=== PATIENT | male | born 1980 | race African-American/Black ===

== ENCOUNTER 2023-05-29 13:47 | Inpatient (IN) | payer OTHER ==
[2023-05-29 14:41] VITALS: BP 123/78; PULSE 103; RESP 18; TEMP 97.7; BMI 24.5
[2023-05-29] MEDS ORDERED: METHOCARBAMOL 500 MG TABLET PO PRN (15:20)
[2023-05-29] MEDS ORDERED: DICYCLOMINE HCL 10 MG CAPSULE PO PRN (15:20)
[2023-05-29] MEDS ORDERED: BENZONATATE 200 MG CAPSULE PO PRN (15:20)
[2023-05-29] MEDS ORDERED: IBUPROFEN 600 MG TABLET (FP) PO PRN (15:20)
[2023-05-29] MEDS ORDERED: MAG HYDROX/AL HYDROX/SIMETH 30 ML UNIT-DOSE CUP PO PRN (15:20)
[2023-05-29] MEDS ORDERED: BISMUTH SUBSALICYLATE 262 MG/15 ML BTL PO PRN (15:20)
[2023-05-29] MEDS ORDERED: guaiFENesin 600 MG TABLET.ER (FP) PO PRN (15:20)
[2023-05-29] MEDS ORDERED: ACETAMINOPHEN 325 MG TABLET (FP) PO PRN (15:20)
[2023-05-29] MEDS ORDERED: BENZOCAINE/MENTHOL (CHLORASEPTIC ) LOZENGE MM PRN (15:20)
[2023-05-29] MEDS ORDERED: NALOXONE HCL 0.4 MG/ML VIAL IM PRN (15:20)
[2023-05-29] MEDS ORDERED: MAGNESIUM HYDROX 2400MG/30ML ORAL SUSPENSION 30 ML CUP PO PRN (15:20)
[2023-05-29] MEDS ORDERED: hydrOXYzine PAMOATE 25 MG CAPSULE (FP) PO PRN (15:20)
[2023-05-29] MEDS ORDERED: NICOTINE POLACRILEX 2 MG GUM BUC PRN (15:20)
[2023-05-29] MEDS ORDERED: NALOXONE HCL (KLOXXADO) 8 MG SPRAY NS PRN (15:20)
[2023-05-29] MEDS ORDERED: POLYETHYLENE GLYCOL (HEALTHYLAX) 3350 17 GM PACKET PO PRN (15:20)
[2023-05-29] MEDS ORDERED: ONDANSETRON *ODT* 4 MG TABLET SL PRN (15:20)
[2023-05-29] MEDS ORDERED: IBUPROFEN 400 MG TABLET (FP) PO PRN (15:20)
[2023-05-29] MEDS ORDERED: LOPERAMIDE HCL 2 MG CAPSULE PO PRN (15:20)
[2023-05-29] MEDS ORDERED: MELATONIN 5 MG TABLETS PO SCH (22:00)
[2023-05-29] MEDS ORDERED: THIAMINE HCL 100 MG TABLET (FP) PO SCH (22:00)
[2023-05-30] MEDS ORDERED: PRENATAL VITAMINS W/ FOLIC ACID TABLET (FP) PO SCH (10:00)
== END 2023-05-30 03:07 | disposition short-term general hospital (02) | DRG 775 ==
LOC: YASAS 13:47 → Y3N 16:07
PROVIDERS: ADMIT Allergy & Immunology; ATTEND Surgery
PROC: HZ2ZZZZ Detoxification Services for Substance Abuse Treatment (ICD-10-PCS; principal; 2023-05-29)
DX: F10.20 Alcohol dependence, uncomplicated (principal); F17.210 Nicotine dependence, cigarettes, uncomplicated; F41.9 Anxiety disorder, unspecified; G62.9 Polyneuropathy, unspecified; I10 Essential (primary) hypertension; E78.2 Mixed hyperlipidemia; R60.0 Localized edema; S91.201A Unspecified open wound of right great toe with damage to nail, initial encounter; W27.8XXA Contact with other nonpowered hand tool, initial encounter; Y92.9 Unspecified place or not applicable; Y99.9 Unspecified external cause status; Z59.02 Unsheltered homelessness; Z99.89 Dependence on other enabling machines and devices; Z28.310 Unvaccinated for COVID-19; Z28.9 Immunization not carried out for unspecified reason
CPT/HCPCS: 36415; 86780

== ENCOUNTER 2023-05-29 19:04 | Inpatient (IN) | payer OTHER ==
[2023-05-29 19:13] VITALS: BMI 24.3
[2023-05-29 20:38] LABS: BASO % 2.3 % (0-2.0); HEMOGLOBIN 13.7 GM/dL (11.7-16.9); LYMPH % 46.6 % (8-40); MCHC 33.4 g/dl (32.0-35.9); MEAN CELL VOLUME 92.9 fl (80-96); MEAN PLT VOLUME 6.8 fl (7.5-11.1); MONO % 18.4 % (3.8-10.2); NEUT % 31.7 % (42.8-82.8); PLATELET COUNT 391 10^3/uL (134-434); RBC 4.42 M/mm3 (4.00-5.60); RDW 18.4 % (11.9-15.9); WHITE BLOOD COUNT 3.8 K/mm3 (4.0-10.0)
[2023-05-29 20:53] LABS: CHLORIDE 103 mmol/L (98-107); SODIUM 146 mmol/L (136-145)
[2023-05-29 20:55] LABS: ALBUMIN 3.4 g/dl (3.4-5.0); CO2 32 mmol/L (21-32); GLUCOSE,RANDOM 110 mg/dL (74-106)
[2023-05-29 20:58] LABS: CREATININE 0.8 mg/dL (0.55-1.3); SGOT/AST 94 U/L (15-37); SGPT/ALT 77 U/L (13-61)
[2023-05-29 21:00] LABS: BILIRUBIN,TOTAL 1.1 mg/dL (0.2-1); TOT PROT 7.3 g/dl (6.4-8.2)
[2023-05-29 21:01] LABS: ALK PHOS 104 U/L (45-117)
[2023-05-29 21:20] LABS: ANION GAP 11 MMOL/L (8-16); BLOOD UREA NITROGEN 2.8 mg/dL (7-18); POTASSIUM 2.8 mmol/L (3.5-5.1)
[2023-05-29] MEDS ORDERED: POTASSIUM CHLORIDE TABS 10 MEQ TABLET.ER (FP) PO ONE (21:38)
[2023-05-29] MEDS ORDERED: POTASSIUM CHLORIDE TABS 20 MEQ TABLET.ER (FP) PO ONE ×2 (21:38→21:45)
[2023-05-29] MEDS ORDERED: POTASSIUM CHLORIDE TABS 10 MEQ TABLET.ER (FP) ONE (21:46)
[2023-05-29] MEDS ORDERED: ENOXAPARIN NA (PORCINE) 40 MG/0.4 ML DISP.SYRIN SQ ONE (22:14)
[2023-05-29] MEDS ORDERED: ENOXAPARIN NA (PORCINE) 100 MG/1 ML DISP.SYRIN SQ ONE (22:27)
[2023-05-30] MEDS ORDERED: LORazepam 2 MG TABLET PO SCH (02:05)
[2023-05-30] MEDS ORDERED: LORazepam 1 MG TABLET PO PRN (02:05)
[2023-05-30] MEDS ORDERED: TRIMETHOBENZAMIDE HCL 200MG/2ML INJ IM PRN (02:37)
[2023-05-30 03:03] LABS: MAGNESIUM 1.3 mg/dL (1.8-2.4)
[2023-05-30 03:10] LABS: POTASSIUM 2.5 mmol/L (3.5-5.1)
[2023-05-30] MEDS ORDERED: POTASSIUM CHLORIDE ORAL LIQUID 20 MEQ/15 ML PO ONE (05:15)
[2023-05-30] MEDS ORDERED: MAGNESIUM SULF 50% (8.12 MEQ/2 ML-1 GM VIAL) IVPB ONE (05:15)
[2023-05-30] MEDS: KCL 10 MEQ IVPB 10 MEQ/100 ML INFUS.BAG IVPB SCH ×6 (06:39→17:29)
[2023-05-30 07:48] LABS: BASO % 1.1 % (0-2.0); EOS % 0.3 % (0-4.5); HEMATOCRIT 39.5 % (35.4-49); HEMOGLOBIN 13.2 GM/dL (11.7-16.9); LYMPH % 36.1 % (8-40); MCH 30.8 pg (25.7-33.7); MCHC 33.6 g/dl (32.0-35.9); MEAN CELL VOLUME 91.7 fl (80-96); MEAN PLT VOLUME 7.2 fl (7.5-11.1); MONO % 13.8 % (3.8-10.2); NEUT % 48.7 % (42.8-82.8); PLATELET COUNT 296 10^3/uL (134-434); RDW 18.3 % (11.9-15.9); WHITE BLOOD COUNT 4.5 K/mm3 (4.0-10.0)
[2023-05-30] MEDS ORDERED: FOLIC ACID INJECTION - 1 MG, THIAMINE HCL 100 MG, MULTIVIT INJECTION ADULT 10 ML in SOD... IVPB ONE (08:00)
[2023-05-30 08:18] LABS: MAGNESIUM 1.8 mg/dL (1.8-2.4)
[2023-05-30 08:22] LABS: PHOSPHOROUS 3.9 mg/dL (2.5-4.9)
[2023-05-30] MEDS: ENOXAPARIN NA (PORCINE) 100 MG/1 ML DISP.SYRIN SQ SCH ×2 (09:45→22:58)
[2023-05-30] MEDS: THIAMINE HCL 100 MG TABLET (FP) PO SCH (09:45)
[2023-05-30] MEDS: FOLIC ACID 1 MG TABLET (FP) PO SCH (09:46)
[2023-05-30 11:21] LABS: EOS % 0.6 % (0-4.5); HEMATOCRIT 40.3 % (35.4-49); HEMOGLOBIN 13.4 GM/dL (11.7-16.9); LYMPH % 32.6 % (8-40); MCH 30.6 pg (25.7-33.7); MCHC 33.3 g/dl (32.0-35.9); MEAN CELL VOLUME 91.9 fl (80-96); MEAN PLT VOLUME 7.3 fl (7.5-11.1); MONO % 14.3 % (3.8-10.2); NEUT % 51.5 % (42.8-82.8); PLATELET COUNT 295 10^3/uL (134-434); RBC 4.38 M/mm3 (4.00-5.60); RDW 17.9 % (11.9-15.9); WHITE BLOOD COUNT 4.1 K/mm3 (4.0-10.0)
[2023-05-30] MEDS: ASPIRIN COATED 81 MG TABLET.EC PO SCH (11:21)
[2023-05-30] MEDS: LORazepam 1 MG TABLET PO SCH ×2 (11:21→17:06)
[2023-05-30 11:25] LABS: HIV INTERPRETATION NEGATIVE (NEGATIVE)
[2023-05-30 11:32] LABS: CHLORIDE 99 mmol/L (98-107); SODIUM 142 mmol/L (136-145)
[2023-05-30 11:34] LABS: CALCIUM 8.7 mg/dL (8.5-10.1)
[2023-05-30 11:35] LABS: CO2 32 mmol/L (21-32); GLUCOSE,RANDOM 118 mg/dL (74-106); MAGNESIUM 1.6 mg/dL (1.8-2.4)
[2023-05-30 11:37] LABS: SGPT/ALT 65 U/L (13-61)
[2023-05-30 11:38] LABS: CREATININE 0.9 mg/dL (0.55-1.3); PHOSPHOROUS 3.1 mg/dL (2.5-4.9); SGOT/AST 102 U/L (15-37)
[2023-05-30 11:39] LABS: BILIRUBIN,TOTAL 2.1 mg/dL (0.2-1); TOT PROT 6.5 g/dl (6.4-8.2)
[2023-05-30 11:40] LABS: ALK PHOS 105 U/L (45-117)
[2023-05-30 11:47] LABS: ANION GAP 11 MMOL/L (8-16); BLOOD UREA NITROGEN 2.8 mg/dL (7-18); POTASSIUM 2.9 mmol/L (3.5-5.1)
[2023-05-30] MEDS: CEPHALEXIN MONOHYDRATE 250 MG CAPSULE (FP) PO SCH ×2 (13:46→17:29)
[2023-05-30] MEDS: metoPROLOL SUCCINATE 25 MG TAB.SR.24H (FP) PO SCH (16:32)
[2023-05-30 19:59] LABS: MAGNESIUM 1.6 mg/dL (1.8-2.4)
[2023-05-30 20:08] LABS: POTASSIUM 2.7 mmol/L (3.5-5.1)
[2023-05-30] MEDS: DOCUSATE SODIUM 100 MG CAPSULE (FP) PO SCH (22:57)
[2023-05-30] MEDS: MAGNESIUM OXIDE 400 MG TABLET (FP) PO SCH (23:00)
[2023-05-31] MEDS ORDERED: POTASSIUM CHLORIDE ORAL LIQUID 20 MEQ/15 ML PO ONE ×2 (01:05→10:46)
[2023-05-31] MEDS: CEPHALEXIN MONOHYDRATE 250 MG CAPSULE (FP) PO SCH ×5 (01:20→22:00)
[2023-05-31] MEDS: LORazepam 1 MG TABLET PO SCH ×4 (06:25→22:34)
[2023-05-31 08:26] LABS: CHLORIDE 103 mmol/L (98-107); SODIUM 144 mmol/L (136-145)
[2023-05-31 08:28] LABS: BASO % 0.9 % (0-2.0); HEMATOCRIT 37.6 % (35.4-49); HEMOGLOBIN 12.6 GM/dL (11.7-16.9); LYMPH % 45.3 % (8-40); MCH 30.7 pg (25.7-33.7); MCHC 33.6 g/dl (32.0-35.9); MEAN CELL VOLUME 91.4 fl (80-96); MEAN PLT VOLUME 7.7 fl (7.5-11.1); MONO % 10.8 % (3.8-10.2); PLATELET COUNT 285 10^3/uL (134-434); RBC 4.12 M/mm3 (4.00-5.60); RDW 17.7 % (11.9-15.9); WHITE BLOOD COUNT 3.6 K/mm3 (4.0-10.0)
[2023-05-31 08:43] LABS: ALBUMIN 2.6 g/dl (3.4-5.0); CALCIUM 8.3 mg/dL (8.5-10.1); GLUCOSE,RANDOM 93 mg/dL (74-106)
[2023-05-31 08:44] LABS: ALBUMIN 2.6 g/dl (3.4-5.0); CO2 33 mmol/L (21-32); MAGNESIUM 1.5 mg/dL (1.8-2.4)
[2023-05-31 08:45] LABS: BILIRUBIN,DIRECT 0.7 mg/dL (0.0-0.2)
[2023-05-31 08:47] LABS: BILIRUBIN,TOTAL 1.5 mg/dL (0.2-1); CREATININE 0.7 mg/dL (0.55-1.3); SGOT/AST 47 U/L (15-37); SGPT/ALT 46 U/L (13-61); TOT PROT 5.5 g/dl (6.4-8.2)
[2023-05-31 08:48] LABS: BILIRUBIN,TOTAL 1.4 mg/dL (0.2-1); TOT PROT 5.5 g/dl (6.4-8.2)
[2023-05-31 08:49] LABS: ALK PHOS 85 U/L (45-117)
[2023-05-31 09:15] LABS: ANION GAP 9 MMOL/L (8-16); BLOOD UREA NITROGEN 2.7 mg/dL (7-18); POTASSIUM 2.7 mmol/L (3.5-5.1)
[2023-05-31] MEDS: MAGNESIUM OXIDE 400 MG TABLET (FP) PO SCH ×2 (09:15→22:35)
[2023-05-31] MEDS: DOCUSATE SODIUM 100 MG CAPSULE (FP) PO SCH ×3 (09:16→22:34)
[2023-05-31] MEDS: metoPROLOL SUCCINATE 25 MG TAB.SR.24H (FP) PO SCH (09:16)
[2023-05-31] MEDS: FOLIC ACID 1 MG TABLET (FP) PO SCH (09:16)
[2023-05-31] MEDS: ENOXAPARIN NA (PORCINE) 100 MG/1 ML DISP.SYRIN SQ SCH (09:16)
[2023-05-31] MEDS: ASPIRIN COATED 81 MG TABLET.EC PO SCH (09:16)
[2023-05-31] MEDS: THIAMINE HCL 100 MG TABLET (FP) PO SCH (09:16)
[2023-05-31] MEDS ORDERED: MAGNESIUM SULF 50% (8.12 MEQ/2 ML-1 GM VIAL) IVPB ONE (10:46)
[2023-05-31] MEDS: KCL 10 MEQ IVPB 10 MEQ/100 ML INFUS.BAG IVPB SCH ×2 (12:46→14:03)
[2023-05-31 22:14] LABS: CHLORIDE 105 mmol/L (98-107); POTASSIUM 3.4 mmol/L (3.5-5.1); SODIUM 144 mmol/L (136-145)
[2023-05-31 22:16] LABS: ALBUMIN 2.7 g/dl (3.4-5.0); ANION GAP 6 MMOL/L (8-16); CALCIUM 8.3 mg/dL (8.5-10.1); CO2 34 mmol/L (21-32); GLUCOSE,RANDOM 130 mg/dL (74-106); MAGNESIUM 1.7 mg/dL (1.8-2.4)
[2023-05-31 22:19] LABS: SGPT/ALT 49 U/L (13-61)
[2023-05-31 22:20] LABS: CREATININE 0.9 mg/dL (0.55-1.3); SGOT/AST 67 U/L (15-37)
[2023-05-31 22:21] LABS: TOT PROT 5.9 g/dl (6.4-8.2)
[2023-05-31 22:22] LABS: ALK PHOS 90 U/L (45-117)
[2023-05-31 22:32] LABS: BLOOD UREA NITROGEN 2.5 mg/dL (7-18)
[2023-05-31] MEDS: APIXABAN 5 MG TABLET PO SCH (22:35)
[2023-06-01] MEDS ORDERED: LORazepam 0.5 MG TABLET PO PRN
[2023-06-01] MEDS: CEPHALEXIN MONOHYDRATE 250 MG CAPSULE (FP) PO SCH ×4 (05:19→23:54)
[2023-06-01] MEDS: LORazepam 0.5 MG TABLET PO SCH ×5 (06:29→22:15)
[2023-06-01 07:42] LABS: CHLORIDE 105 mmol/L (98-107); POTASSIUM 3.4 mmol/L (3.5-5.1); SODIUM 141 mmol/L (136-145)
[2023-06-01 07:43] LABS: CALCIUM 8.5 mg/dL (8.5-10.1)
[2023-06-01 07:44] LABS: ANION GAP 7 MMOL/L (8-16); CO2 29 mmol/L (21-32); GLUCOSE,RANDOM 131 mg/dL (74-106)
[2023-06-01 07:46] LABS: CREATININE 0.7 mg/dL (0.55-1.3)
[2023-06-01 08:02] LABS: BLOOD UREA NITROGEN 2.4 mg/dL (7-18)
[2023-06-01] MEDS: FOLIC ACID 1 MG TABLET (FP) PO SCH (09:37)
[2023-06-01] MEDS: MAGNESIUM OXIDE 400 MG TABLET (FP) PO SCH ×2 (09:37→21:14)
[2023-06-01] MEDS: APIXABAN 5 MG TABLET PO SCH ×2 (09:37→21:14)
[2023-06-01] MEDS: ASPIRIN COATED 81 MG TABLET.EC PO SCH (09:37)
[2023-06-01] MEDS: THIAMINE HCL 100 MG TABLET (FP) PO SCH (09:37)
[2023-06-01] MEDS: metoPROLOL SUCCINATE 25 MG TAB.SR.24H (FP) PO SCH (09:37)
[2023-06-01] MEDS: DOCUSATE SODIUM 100 MG CAPSULE (FP) PO SCH ×2 (09:42→21:13)
[2023-06-02] MEDS ORDERED: LORazepam 0.5 MG TABLET PO ONE (05:00)
[2023-06-02] MEDS: CEPHALEXIN MONOHYDRATE 250 MG CAPSULE (FP) PO SCH ×4 (05:08→23:00)
[2023-06-02 07:51] LABS: EOS % 1.7 % (0-4.5); HEMATOCRIT 37.2 % (35.4-49); HEMOGLOBIN 12.4 GM/dL (11.7-16.9); LYMPH % 31.5 % (8-40); MCH 31.6 pg (25.7-33.7); MCHC 33.5 g/dl (32.0-35.9); MEAN CELL VOLUME 94.2 fl (80-96); MEAN PLT VOLUME 7.9 fl (7.5-11.1); MONO % 10.2 % (3.8-10.2); NEUT % 55.6 % (42.8-82.8); PLATELET COUNT 236 10^3/uL (134-434); RBC 3.95 M/mm3 (4.00-5.60); RDW 18.3 % (11.9-15.9); WHITE BLOOD COUNT 5.3 K/mm3 (4.0-10.0)
[2023-06-02 08:02] LABS: POTASSIUM 3.4 mmol/L (3.5-5.1)
[2023-06-02 08:21] LABS: CALCIUM 8.7 mg/dL (8.5-10.1)
[2023-06-02 08:22] LABS: ALBUMIN 2.6 g/dl (3.4-5.0); BLOOD UREA NITROGEN 4.7 mg/dL (7-18); MAGNESIUM 1.7 mg/dL (1.8-2.4)
[2023-06-02 08:24] LABS: BILIRUBIN,TOTAL 0.6 mg/dL (0.2-1); CREATININE 0.6 mg/dL (0.55-1.3); TOT PROT 5.7 g/dl (6.4-8.2)
[2023-06-02] MEDS: metoPROLOL SUCCINATE 25 MG TAB.SR.24H (FP) PO SCH (09:16)
[2023-06-02] MEDS: MAGNESIUM OXIDE 400 MG TABLET (FP) PO SCH ×2 (09:16→21:54)
[2023-06-02] MEDS: THIAMINE HCL 100 MG TABLET (FP) PO SCH (09:16)
[2023-06-02] MEDS: DOCUSATE SODIUM 100 MG CAPSULE (FP) PO SCH ×2 (09:16→21:54)
[2023-06-02] MEDS: ASPIRIN COATED 81 MG TABLET.EC PO SCH (09:16)
[2023-06-02] MEDS: FOLIC ACID 1 MG TABLET (FP) PO SCH (09:18)
[2023-06-02] MEDS: APIXABAN 5 MG TABLET PO SCH ×2 (09:18→21:54)
[2023-06-02] MEDS ORDERED: POTASSIUM CHLORIDE ORAL LIQUID 20 MEQ/15 ML PO ONE (13:45)
[2023-06-02] MEDS ORDERED: MAGNESIUM SULF 50% (8.12 MEQ/2 ML-1 GM VIAL) IVPB ONE (15:06)
[2023-06-02] MEDS ORDERED: POTASSIUM CHLORIDE TABS 20 MEQ TABLET.ER (FP) PO ONE (18:00)
[2023-06-02 22:29] LABS: EPI CELLS 8 /uL (0-25.1); HYALINE CASTS 0 /uL (0-3.1); URINE APPEARANCE CLEAR; URINE BACTERIA 2 /uL (0-1359); URINE BILIRUBIN NEGATIVE (NEGATIVE); URINE COLOR YELLOW; URINE GLUCOSE (UA) NEGATIVE (NEGATIVE); URINE KETONE NEGATIVE (NEGATIVE); URINE LEUK ESTERASE TRACE (NEGATIVE); URINE NITRITE NEGATIVE (NEGATIVE); URINE PROTEIN NEGATIVE (NEGATIVE); URINE RBC 6 /uL (0-23.9); URINE WBC 60 /uL (0-25.8)
[2023-06-02] MEDS ORDERED: MELATONIN 5 MG TABLETS PO PRN (23:11)
[2023-06-03 05:32] VITALS: RESP 18
[2023-06-03] MEDS: CEPHALEXIN MONOHYDRATE 250 MG CAPSULE (FP) PO SCH ×2 (05:41→11:31)
[2023-06-03 08:23] LABS: EOS % 1.7 % (0-4.5); HEMATOCRIT 37.4 % (35.4-49); HEMOGLOBIN 12.4 GM/dL (11.7-16.9); LYMPH % 26.8 % (8-40); MCH 31.2 pg (25.7-33.7); MCHC 33.3 g/dl (32.0-35.9); MEAN CELL VOLUME 93.8 fl (80-96); MEAN PLT VOLUME 8.1 fl (7.5-11.1); MONO % 8.9 % (3.8-10.2); NEUT % 61.6 % (42.8-82.8); PLATELET COUNT 239 10^3/uL (134-434); RBC 3.99 M/mm3 (4.00-5.60); RDW 18.2 % (11.9-15.9); WHITE BLOOD COUNT 6.8 K/mm3 (4.0-10.0)
[2023-06-03 08:49] LABS: ALBUMIN 2.6 g/dl (3.4-5.0); BLOOD UREA NITROGEN 6.2 mg/dL (7-18); CALCIUM 8.5 mg/dL (8.5-10.1); MAGNESIUM 1.8 mg/dL (1.8-2.4)
[2023-06-03 08:51] LABS: BILIRUBIN,TOTAL 0.5 mg/dL (0.2-1); CREATININE 0.6 mg/dL (0.55-1.3); PHOSPHOROUS 1.9 mg/dL (2.5-4.9); TOT PROT 5.6 g/dl (6.4-8.2)
[2023-06-03 09:12] VITALS: BP 130/89; PULSE 81; TEMP 98.4
[2023-06-03] MEDS: FOLIC ACID 1 MG TABLET (FP) PO SCH (09:18)
[2023-06-03] MEDS: ASPIRIN COATED 81 MG TABLET.EC PO SCH (09:18)
[2023-06-03] MEDS: THIAMINE HCL 100 MG TABLET (FP) PO SCH (09:18)
[2023-06-03] MEDS: MAGNESIUM OXIDE 400 MG TABLET (FP) PO SCH (09:18)
[2023-06-03] MEDS: APIXABAN 5 MG TABLET PO SCH (09:18)
[2023-06-03] MEDS: DOCUSATE SODIUM 100 MG CAPSULE (FP) PO SCH (09:18)
[2023-06-03] MEDS ORDERED: metoPROLOL SUCCINATE 25 MG TAB.SR.24H (FP) PO SCH ×2 (10:00)
[2023-06-03] MEDS ORDERED: NAPH,MB-DB/K PH,MBDB POWDER PACKET PO SCH (11:00)
== END 2023-06-03 17:15 | disposition other institution (70) | DRG 197 ==
LOC: JER 19:04 → JERBED 22:25 → J4W 05-30 02:53
PROVIDERS: ADMIT Internal Medicine; ATTEND Internal Medicine
PROC: 0HDRXZZ Extraction of Toe Nail, External Approach (ICD-10-PCS; principal; 2023-05-30)
DX: I82.442 Acute embolism and thrombosis of left tibial vein (principal); I47.20 Ventricular tachycardia, unspecified; E83.42 Hypomagnesemia; G62.1 Alcoholic polyneuropathy; I24.8 Other forms of acute ischemic heart disease; M87.9 Osteonecrosis, unspecified; B35.1 Tinea unguium; E78.5 Hyperlipidemia, unspecified; E87.6 Hypokalemia; F10.239 Alcohol dependence with withdrawal, unspecified; F17.210 Nicotine dependence, cigarettes, uncomplicated; I10 Essential (primary) hypertension; S91.209A Unspecified open wound of unspecified toe(s) with damage to nail, initial encounter; I82.432 Acute embolism and thrombosis of left popliteal vein; X58.XXXA Exposure to other specified factors, initial encounter; Y93.9 Activity, unspecified; Y92.89 Other specified places as the place of occurrence of the external cause; Y99.9 Unspecified external cause status
CPT/HCPCS: 36415; 73610-TC-RT-FY; 73630-TC-RT-FY; 76705-TC; 80048; 80053; 80061; 80076; 80307; 81003; 83036; 83735; 84100; 84132; 84443; 84484; 85025; 86704; 86706; 86803; 87101; 87220; 87340; 87389; 87635; 93005; 93010; 93306-TC; 93970-TC; 97116-GP; 97162-GP; 99285-25

== ENCOUNTER 2023-06-03 18:43 | Inpatient (IN) | payer OTHER ==
[2023-06-03 20:33] VITALS: BMI 26.3
[2023-06-03] MEDS ORDERED: ALBUTEROL SO4 HFA INHALER IH PRN (20:44)
[2023-06-03] MEDS ORDERED: CEPHALEXIN MONOHYDRATE 500 MG CAPSULE (UD) PO SCH (20:45)
[2023-06-03] MEDS ORDERED: LOPERAMIDE HCL 2 MG CAPSULE PO PRN (20:47)
[2023-06-03] MEDS ORDERED: BENZONATATE 200 MG CAPSULE PO PRN (20:47)
[2023-06-03] MEDS ORDERED: BENZOCAINE/MENTHOL (CHLORASEPTIC ) LOZENGE MM PRN (20:47)
[2023-06-03] MEDS ORDERED: MAG HYDROX/AL HYDROX/SIMETH 30 ML UNIT-DOSE CUP PO PRN (20:47)
[2023-06-03] MEDS ORDERED: guaiFENesin 600 MG TABLET.ER (FP) PO PRN (20:47)
[2023-06-03] MEDS ORDERED: P-EPHED 60MG/TRIPROLIDI 2.5MG TABLET PO PRN (20:47)
[2023-06-03] MEDS ORDERED: AMMONIUM LACTATE 12% LOTION 225 GM BOTTLE TP PRN (20:47)
[2023-06-03] MEDS ORDERED: ACETAMINOPHEN 325 MG TABLET (FP) PO PRN (20:47)
[2023-06-03] MEDS ORDERED: MELATONIN 5 MG TABLETS PO SCH (22:00)
[2023-06-03] MEDS ORDERED: metoPROLOL SUCCINATE 25 MG TAB.SR.24H (FP) PO SCH (22:00)
[2023-06-04] MEDS: CEPHALEXIN MONOHYDRATE 500 MG CAPSULE (UD) PO SCH ×4 (01:02→20:30)
[2023-06-04] MEDS: THIAMINE HCL 100 MG TABLET (FP) PO SCH ×2 (01:02→21:44)
[2023-06-04] MEDS ORDERED: MELATONIN 5 MG TABLETS PO SCH (01:15)
[2023-06-04] MEDS: PRENATAL VITAMINS W/ FOLIC ACID TABLET (FP) PO SCH (10:33)
[2023-06-04] MEDS: APIXABAN 5 MG TABLET PO SCH ×2 (10:34→21:44)
[2023-06-04] MEDS: metoPROLOL SUCCINATE 25 MG TAB.SR.24H (FP) PO SCH (10:34)
[2023-06-04] MEDS ORDERED: SUVOREXANT 10 MG TABLET PO PRN (22:00)
[2023-06-05] MEDS: CEPHALEXIN MONOHYDRATE 500 MG CAPSULE (UD) PO SCH ×4 (00:43→18:02)
[2023-06-05] MEDS: MAGNESIUM HYDROX 2400MG/30ML ORAL SUSPENSION 30 ML CUP PO PRN (07:09)
[2023-06-05] MEDS: metoPROLOL SUCCINATE 25 MG TAB.SR.24H (FP) PO SCH (10:15)
[2023-06-05] MEDS: APIXABAN 5 MG TABLET PO SCH ×2 (10:16→21:36)
[2023-06-05] MEDS: PRENATAL VITAMINS W/ FOLIC ACID TABLET (FP) PO SCH (10:16)
[2023-06-05] MEDS: POLYETHYLENE GLYCOL (HEALTHYLAX) 3350 17 GM PACKET PO PRN (10:21)
[2023-06-05] MEDS: THIAMINE HCL 100 MG TABLET (FP) PO SCH (21:36)
[2023-06-05] MEDS ORDERED: SUVOREXANT 15 MG TABLET PO PRN (22:00)
[2023-06-06] MEDS: CEPHALEXIN MONOHYDRATE 500 MG CAPSULE (UD) PO SCH ×4 (01:30→19:36)
[2023-06-06] MEDS: POLYETHYLENE GLYCOL (HEALTHYLAX) 3350 17 GM PACKET PO PRN (06:15)
[2023-06-06] MEDS: PRENATAL VITAMINS W/ FOLIC ACID TABLET (FP) PO SCH (09:43)
[2023-06-06] MEDS: APIXABAN 5 MG TABLET PO SCH ×2 (09:43→21:33)
[2023-06-06] MEDS: metoPROLOL SUCCINATE 25 MG TAB.SR.24H (FP) PO SCH (09:43)
[2023-06-06] MEDS: MIRTAZAPINE 15 MG TABLET (FP) PO SCH (21:35)
[2023-06-06] MEDS: THIAMINE HCL 100 MG TABLET (FP) PO SCH (21:36)
[2023-06-07] MEDS: APIXABAN 5 MG TABLET PO SCH ×2 (09:50→21:58)
[2023-06-07] MEDS: PRENATAL VITAMINS W/ FOLIC ACID TABLET (FP) PO SCH (09:50)
[2023-06-07] MEDS: metoPROLOL SUCCINATE 25 MG TAB.SR.24H (FP) PO SCH (09:50)
[2023-06-07] MEDS: MAGNESIUM HYDROX 2400MG/30ML ORAL SUSPENSION 30 ML CUP PO PRN (09:53)
[2023-06-07] MEDS: POLYETHYLENE GLYCOL (HEALTHYLAX) 3350 17 GM PACKET PO PRN (09:55)
[2023-06-07] MEDS: MIRTAZAPINE 15 MG TABLET (FP) PO SCH (21:57)
[2023-06-07] MEDS: SUVOREXANT 15 MG TABLET PO PRN (21:58)
[2023-06-07] MEDS: THIAMINE HCL 100 MG TABLET (FP) PO SCH (21:58)
[2023-06-08] MEDS: APIXABAN 5 MG TABLET PO SCH ×2 (10:13→21:38)
[2023-06-08] MEDS: PRENATAL VITAMINS W/ FOLIC ACID TABLET (FP) PO SCH (10:13)
[2023-06-08] MEDS: metoPROLOL SUCCINATE 25 MG TAB.SR.24H (FP) PO SCH (10:13)
[2023-06-08] MEDS: MAGNESIUM HYDROX 2400MG/30ML ORAL SUSPENSION 30 ML CUP PO PRN (10:16)
[2023-06-08] MEDS: POLYETHYLENE GLYCOL (HEALTHYLAX) 3350 17 GM PACKET PO PRN (10:16)
[2023-06-08] MEDS: THIAMINE HCL 100 MG TABLET (FP) PO SCH (21:35)
[2023-06-08] MEDS: MIRTAZAPINE 15 MG TABLET (FP) PO SCH (21:37)
[2023-06-08] MEDS: SUVOREXANT 15 MG TABLET PO PRN (21:39)
[2023-06-09] MEDS: metoPROLOL SUCCINATE 25 MG TAB.SR.24H (FP) PO SCH (09:34)
[2023-06-09] MEDS: PRENATAL VITAMINS W/ FOLIC ACID TABLET (FP) PO SCH (09:34)
[2023-06-09] MEDS: APIXABAN 5 MG TABLET PO SCH ×2 (09:34→21:23)
[2023-06-09] MEDS: MAGNESIUM HYDROX 2400MG/30ML ORAL SUSPENSION 30 ML CUP PO PRN (09:36)
[2023-06-09] MEDS: POLYETHYLENE GLYCOL (HEALTHYLAX) 3350 17 GM PACKET PO PRN (09:38)
[2023-06-09] MEDS: THIAMINE HCL 100 MG TABLET (FP) PO SCH (21:23)
[2023-06-09] MEDS: MIRTAZAPINE 15 MG TABLET (FP) PO SCH (21:23)
[2023-06-09] MEDS: SUVOREXANT 15 MG TABLET PO PRN (21:24)
[2023-06-10] MEDS: APIXABAN 5 MG TABLET PO SCH ×2 (09:50→21:27)
[2023-06-10] MEDS: PRENATAL VITAMINS W/ FOLIC ACID TABLET (FP) PO SCH (09:50)
[2023-06-10] MEDS: metoPROLOL SUCCINATE 25 MG TAB.SR.24H (FP) PO SCH (09:50)
[2023-06-10] MEDS: POLYETHYLENE GLYCOL (HEALTHYLAX) 3350 17 GM PACKET PO PRN (09:53)
[2023-06-10] MEDS: MAGNESIUM HYDROX 2400MG/30ML ORAL SUSPENSION 30 ML CUP PO PRN (09:53)
[2023-06-10] MEDS: SUVOREXANT 15 MG TABLET PO PRN (21:26)
[2023-06-10] MEDS: MIRTAZAPINE 15 MG TABLET (FP) PO SCH (21:26)
[2023-06-10] MEDS: BISACODYL 5 MG TABLET.DR (FP) PO PRN (21:27)
[2023-06-10] MEDS: THIAMINE HCL 100 MG TABLET (FP) PO SCH (21:27)
[2023-06-11] MEDS: metoPROLOL SUCCINATE 25 MG TAB.SR.24H (FP) PO SCH (09:30)
[2023-06-11] MEDS: PRENATAL VITAMINS W/ FOLIC ACID TABLET (FP) PO SCH (09:30)
[2023-06-11] MEDS: APIXABAN 5 MG TABLET PO SCH ×2 (09:30→21:21)
[2023-06-11] MEDS: MAGNESIUM HYDROX 2400MG/30ML ORAL SUSPENSION 30 ML CUP PO PRN (09:32)
[2023-06-11] MEDS: POLYETHYLENE GLYCOL (HEALTHYLAX) 3350 17 GM PACKET PO PRN (09:32)
[2023-06-11] MEDS: THIAMINE HCL 100 MG TABLET (FP) PO SCH (21:20)
[2023-06-11] MEDS: MIRTAZAPINE 15 MG TABLET (FP) PO SCH (21:20)
[2023-06-11] MEDS: SUVOREXANT 15 MG TABLET PO PRN (21:22)
[2023-06-11] MEDS: BISACODYL 5 MG TABLET.DR (FP) PO PRN (21:22)
[2023-06-12] MEDS: metoPROLOL SUCCINATE 25 MG TAB.SR.24H (FP) PO SCH (07:03)
[2023-06-12] MEDS: APIXABAN 5 MG TABLET PO SCH ×2 (09:41→21:48)
[2023-06-12] MEDS: PRENATAL VITAMINS W/ FOLIC ACID TABLET (FP) PO SCH (09:41)
[2023-06-12] MEDS: MAGNESIUM HYDROX 2400MG/30ML ORAL SUSPENSION 30 ML CUP PO PRN (09:44)
[2023-06-12] MEDS: POLYETHYLENE GLYCOL (HEALTHYLAX) 3350 17 GM PACKET PO PRN (09:45)
[2023-06-12] MEDS: METHYL SALICYLATE/MENTHOL OINT 30 GM TUBE TP SCH (13:57)
[2023-06-12] MEDS ORDERED: POTASSIUM CHLORIDE TABS 20 MEQ TABLET.ER (FP) PO SCH (15:45)
[2023-06-12] MEDS: GABAPENTIN 300 MG CAPSULE PO SCH ×2 (17:58→21:48)
[2023-06-12] MEDS: LISINOPRIL 5 MG TABLET PO SCH (17:58)
[2023-06-12] MEDS: HYDROCHLOROTHIAZIDE 12.5 MG CAPSULE (FP) PO SCH (17:58)
[2023-06-12] MEDS: VITAMINS A AND D TOPICAL OINTMENT 60 GM TUBE TP SCH (17:58)
[2023-06-12] MEDS: THIAMINE HCL 100 MG TABLET (FP) PO SCH (21:47)
[2023-06-12] MEDS: SUVOREXANT 15 MG TABLET PO PRN (21:48)
[2023-06-12] MEDS: MIRTAZAPINE 15 MG TABLET (FP) PO SCH (21:48)
[2023-06-13] MEDS: VITAMINS A AND D TOPICAL OINTMENT 60 GM TUBE TP SCH ×4 (01:10→19:37)
[2023-06-13] MEDS: GABAPENTIN 300 MG CAPSULE PO SCH ×3 (06:40→21:14)
[2023-06-13] MEDS: metoPROLOL SUCCINATE 25 MG TAB.SR.24H (FP) PO SCH (09:34)
[2023-06-13] MEDS: APIXABAN 5 MG TABLET PO SCH ×2 (09:34→21:14)
[2023-06-13] MEDS: LISINOPRIL 5 MG TABLET PO SCH (09:34)
[2023-06-13] MEDS: HYDROCHLOROTHIAZIDE 12.5 MG CAPSULE (FP) PO SCH (09:34)
[2023-06-13] MEDS: METHYL SALICYLATE/MENTHOL OINT 30 GM TUBE TP SCH (09:35)
[2023-06-13] MEDS: PRENATAL VITAMINS W/ FOLIC ACID TABLET (FP) PO SCH (09:35)
[2023-06-13] MEDS: SELENIUM SULFIDE 2.25% 180 ML SHAMPOO TP SCH (09:38)
[2023-06-13 11:14] LABS: POTASSIUM 4.4 mmol/L (3.5-5.1)
[2023-06-13 11:16] LABS: CALCIUM 9.2 mg/dL (8.5-10.1)
[2023-06-13 11:17] LABS: ALBUMIN 3.2 g/dl (3.4-5.0); BLOOD UREA NITROGEN 7.9 mg/dL (7-18)
[2023-06-13 11:20] LABS: CREATININE 0.7 mg/dL (0.55-1.3)
[2023-06-13 11:21] LABS: BILIRUBIN,TOTAL 0.3 mg/dL (0.2-1)
[2023-06-13 11:22] LABS: TOT PROT 6.7 g/dl (6.4-8.2)
[2023-06-13] MEDS: MIRTAZAPINE 15 MG TABLET (FP) PO SCH (21:13)
[2023-06-13] MEDS: THIAMINE HCL 100 MG TABLET (FP) PO SCH (21:14)
[2023-06-13] MEDS: BISACODYL 5 MG TABLET.DR (FP) PO PRN (21:14)
[2023-06-13] MEDS: SUVOREXANT 15 MG TABLET PO PRN (21:15)
[2023-06-14] MEDS: VITAMINS A AND D TOPICAL OINTMENT 60 GM TUBE TP SCH ×4 (06:24→21:39)
[2023-06-14] MEDS: GABAPENTIN 300 MG CAPSULE PO SCH ×3 (06:24→21:37)
[2023-06-14] MEDS: COLLOIDAL OATMEAL 1 BAR EACH TP PRN (07:03)
[2023-06-14] MEDS: metoPROLOL SUCCINATE 25 MG TAB.SR.24H (FP) PO SCH (09:41)
[2023-06-14] MEDS: PRENATAL VITAMINS W/ FOLIC ACID TABLET (FP) PO SCH (09:41)
[2023-06-14] MEDS: APIXABAN 5 MG TABLET PO SCH ×2 (09:41→21:38)
[2023-06-14] MEDS: SELENIUM SULFIDE 2.25% 180 ML SHAMPOO TP SCH (09:42)
[2023-06-14] MEDS: METHYL SALICYLATE/MENTHOL OINT 30 GM TUBE TP SCH (09:43)
[2023-06-14] MEDS: LISINOPRIL 5 MG TABLET PO SCH (10:49)
[2023-06-14] MEDS: HYDROCHLOROTHIAZIDE 12.5 MG CAPSULE (FP) PO SCH (10:49)
[2023-06-14] MEDS: THIAMINE HCL 100 MG TABLET (FP) PO SCH (21:37)
[2023-06-14] MEDS: BISACODYL 5 MG TABLET.DR (FP) PO PRN (21:37)
[2023-06-14] MEDS: SUVOREXANT 15 MG TABLET PO PRN (21:37)
[2023-06-14] MEDS: MIRTAZAPINE 15 MG TABLET (FP) PO SCH (21:37)
[2023-06-15] MEDS: VITAMINS A AND D TOPICAL OINTMENT 60 GM TUBE TP SCH ×4 (01:59→19:58)
[2023-06-15] MEDS: GABAPENTIN 300 MG CAPSULE PO SCH ×3 (06:15→21:05)
[2023-06-15] MEDS: LISINOPRIL 5 MG TABLET PO SCH (09:21)
[2023-06-15] MEDS: HYDROCHLOROTHIAZIDE 12.5 MG CAPSULE (FP) PO SCH (09:21)
[2023-06-15] MEDS: PRENATAL VITAMINS W/ FOLIC ACID TABLET (FP) PO SCH (09:22)
[2023-06-15] MEDS: METHYL SALICYLATE/MENTHOL OINT 30 GM TUBE TP SCH (09:22)
[2023-06-15] MEDS: APIXABAN 5 MG TABLET PO SCH ×2 (09:22→21:05)
[2023-06-15] MEDS: metoPROLOL SUCCINATE 25 MG TAB.SR.24H (FP) PO SCH (09:23)
[2023-06-15] MEDS: SELENIUM SULFIDE 2.25% 180 ML SHAMPOO TP SCH (09:23)
[2023-06-15] MEDS: MIRTAZAPINE 15 MG TABLET (FP) PO SCH (21:05)
[2023-06-15] MEDS: THIAMINE HCL 100 MG TABLET (FP) PO SCH (21:05)
[2023-06-15] MEDS: SUVOREXANT 15 MG TABLET PO PRN (21:05)
[2023-06-16] MEDS: VITAMINS A AND D TOPICAL OINTMENT 60 GM TUBE TP SCH ×4 (01:13→17:27)
[2023-06-16] MEDS: GABAPENTIN 300 MG CAPSULE PO SCH ×3 (06:41→21:08)
[2023-06-16] MEDS ORDERED: HYDROCHLOROTHIAZIDE 12.5 MG CAPSULE (FP) PO SCH (07:31)
[2023-06-16] MEDS ORDERED: HYDROCHLOROTHIAZIDE 12.5 MG CAPSULE (FP) PO ONE (07:32)
[2023-06-16] MEDS ORDERED: LISINOPRIL 5 MG TABLET PO ONE (07:33)
[2023-06-16] MEDS ORDERED: metoPROLOL SUCCINATE 25 MG TAB.SR.24H (FP) PO ONE (07:34)
[2023-06-16] MEDS: NICOTINE 10 MG CARTRIDGE (INHALER) IH SCH ×3 (08:01→14:26)
[2023-06-16] MEDS ORDERED: LACTULOSE 20 GM/30 ML UDC (FOR ORAL USE ONLY) PO ONE (08:39)
[2023-06-16] MEDS: PRENATAL VITAMINS W/ FOLIC ACID TABLET (FP) PO SCH (09:47)
[2023-06-16] MEDS: APIXABAN 5 MG TABLET PO SCH ×2 (09:47→21:08)
[2023-06-16] MEDS: METHYL SALICYLATE/MENTHOL OINT 30 GM TUBE TP SCH (09:48)
[2023-06-16] MEDS: SELENIUM SULFIDE 2.25% 180 ML SHAMPOO TP SCH (09:52)
[2023-06-16] MEDS: MIRTAZAPINE 15 MG TABLET (FP) PO SCH (21:08)
[2023-06-16] MEDS: THIAMINE HCL 100 MG TABLET (FP) PO SCH (21:08)
[2023-06-16] MEDS: TRIAMCINOLONE ACET 0.1% CREAM 15 GM TUBE TP SCH (21:12)
[2023-06-16] MEDS: SUVOREXANT 15 MG TABLET PO PRN (21:12)
[2023-06-16] MEDS: BISACODYL 5 MG TABLET.DR (FP) PO PRN (21:14)
[2023-06-17] MEDS: VITAMINS A AND D TOPICAL OINTMENT 60 GM TUBE TP SCH ×4 (02:03→19:18)
[2023-06-17] MEDS: GABAPENTIN 300 MG CAPSULE PO SCH ×3 (07:00→21:05)
[2023-06-17] MEDS: BISACODYL 5 MG TABLET.DR (FP) PO PRN (07:00)
[2023-06-17] MEDS: NICOTINE 10 MG CARTRIDGE (INHALER) IH PRN ×4 (07:01→21:05)
[2023-06-17] MEDS: PRENATAL VITAMINS W/ FOLIC ACID TABLET (FP) PO SCH (09:30)
[2023-06-17] MEDS: METHYL SALICYLATE/MENTHOL OINT 30 GM TUBE TP SCH (09:31)
[2023-06-17] MEDS: APIXABAN 5 MG TABLET PO SCH ×2 (09:31→21:05)
[2023-06-17] MEDS: SPIRONOLACTONE 25 MG TABLET PO SCH (09:31)
[2023-06-17] MEDS: TRIAMCINOLONE ACET 0.1% CREAM 15 GM TUBE TP SCH ×2 (09:32→21:36)
[2023-06-17] MEDS: SELENIUM SULFIDE 2.25% 180 ML SHAMPOO TP SCH (09:32)
[2023-06-17] MEDS: metoPROLOL SUCCINATE 25 MG TAB.SR.24H (FP) PO SCH (09:35)
[2023-06-17] MEDS ORDERED: LISINOPRIL 5 MG TABLET PO ONE (09:55)
[2023-06-17] MEDS ORDERED: LISINOPRIL 5 MG TABLET PO SCH ×2 (10:00)
[2023-06-17] MEDS ORDERED: HYDROCHLOROTHIAZIDE 12.5 MG CAPSULE (FP) PO SCH (10:00)
[2023-06-17] MEDS: THIAMINE HCL 100 MG TABLET (FP) PO SCH (21:05)
[2023-06-17] MEDS: SUVOREXANT 15 MG TABLET PO PRN (21:05)
[2023-06-17] MEDS: MIRTAZAPINE 15 MG TABLET (FP) PO SCH (21:06)
[2023-06-18] MEDS: VITAMINS A AND D TOPICAL OINTMENT 60 GM TUBE TP SCH ×5 (01:04→23:45)
[2023-06-18] MEDS: GABAPENTIN 300 MG CAPSULE PO SCH ×3 (06:07→21:21)
[2023-06-18] MEDS: NICOTINE 10 MG CARTRIDGE (INHALER) IH PRN ×4 (06:07→21:20)
[2023-06-18] MEDS: LISINOPRIL 5 MG TABLET PO SCH (06:08)
[2023-06-18 07:10] VITALS: RESP 18
[2023-06-18] MEDS: APIXABAN 5 MG TABLET PO SCH ×2 (09:30→21:21)
[2023-06-18] MEDS: metoPROLOL SUCCINATE 25 MG TAB.SR.24H (FP) PO SCH (09:30)
[2023-06-18] MEDS: PRENATAL VITAMINS W/ FOLIC ACID TABLET (FP) PO SCH (09:31)
[2023-06-18] MEDS: SPIRONOLACTONE 25 MG TABLET PO SCH (09:31)
[2023-06-18] MEDS: TRIAMCINOLONE ACET 0.1% CREAM 15 GM TUBE TP SCH ×2 (09:31→21:19)
[2023-06-18] MEDS: METHYL SALICYLATE/MENTHOL OINT 30 GM TUBE TP SCH (09:31)
[2023-06-18] MEDS: SELENIUM SULFIDE 2.25% 180 ML SHAMPOO TP SCH (09:32)
[2023-06-18] MEDS: LACTULOSE 20 GM/30 ML UDC (FOR ORAL USE ONLY) PO SCH (15:08)
[2023-06-18] MEDS: MIRTAZAPINE 15 MG TABLET (FP) PO SCH (21:20)
[2023-06-18] MEDS: THIAMINE HCL 100 MG TABLET (FP) PO SCH (21:20)
[2023-06-18] MEDS: SUVOREXANT 15 MG TABLET PO PRN (21:24)
[2023-06-18] MEDS: BISACODYL 5 MG TABLET.DR (FP) PO PRN (21:25)
[2023-06-19] MEDS: LISINOPRIL 5 MG TABLET PO SCH (06:25)
[2023-06-19] MEDS: GABAPENTIN 300 MG CAPSULE PO SCH ×3 (06:25→21:08)
[2023-06-19] MEDS: VITAMINS A AND D TOPICAL OINTMENT 60 GM TUBE TP SCH ×3 (06:26→18:09)
[2023-06-19] MEDS: NICOTINE 10 MG CARTRIDGE (INHALER) IH PRN ×4 (06:27→19:41)
[2023-06-19] MEDS: LACTULOSE 20 GM/30 ML UDC (FOR ORAL USE ONLY) PO SCH (09:35)
[2023-06-19] MEDS: APIXABAN 5 MG TABLET PO SCH ×2 (09:36→21:08)
[2023-06-19] MEDS: metoPROLOL SUCCINATE 25 MG TAB.SR.24H (FP) PO SCH (09:36)
[2023-06-19] MEDS: PRENATAL VITAMINS W/ FOLIC ACID TABLET (FP) PO SCH (09:36)
[2023-06-19] MEDS: SPIRONOLACTONE 25 MG TABLET PO SCH (09:37)
[2023-06-19] MEDS: SELENIUM SULFIDE 2.25% 180 ML SHAMPOO TP SCH (09:37)
[2023-06-19] MEDS: TRIAMCINOLONE ACET 0.1% CREAM 15 GM TUBE TP SCH ×2 (09:37→21:07)
[2023-06-19] MEDS: METHYL SALICYLATE/MENTHOL OINT 30 GM TUBE TP SCH (09:37)
[2023-06-19] MEDS: THIAMINE HCL 100 MG TABLET (FP) PO SCH (21:08)
[2023-06-19] MEDS: MIRTAZAPINE 15 MG TABLET (FP) PO SCH (21:08)
[2023-06-19] MEDS: SUVOREXANT 15 MG TABLET PO PRN (21:08)
[2023-06-19] MEDS: BISACODYL 5 MG TABLET.DR (FP) PO PRN (21:10)
[2023-06-20] MEDS: VITAMINS A AND D TOPICAL OINTMENT 60 GM TUBE TP SCH ×5 (00:25→17:02)
[2023-06-20] MEDS: NICOTINE 10 MG CARTRIDGE (INHALER) IH PRN ×4 (06:35→21:11)
[2023-06-20] MEDS: LISINOPRIL 5 MG TABLET PO SCH (06:36)
[2023-06-20] MEDS: GABAPENTIN 300 MG CAPSULE PO SCH ×3 (06:36→21:11)
[2023-06-20] MEDS: SPIRONOLACTONE 25 MG TABLET PO SCH (09:51)
[2023-06-20] MEDS: LACTULOSE 20 GM/30 ML UDC (FOR ORAL USE ONLY) PO SCH (09:51)
[2023-06-20] MEDS: APIXABAN 5 MG TABLET PO SCH ×2 (09:51→21:11)
[2023-06-20] MEDS: metoPROLOL SUCCINATE 25 MG TAB.SR.24H (FP) PO SCH (09:51)
[2023-06-20] MEDS: PRENATAL VITAMINS W/ FOLIC ACID TABLET (FP) PO SCH (09:51)
[2023-06-20] MEDS: TRIAMCINOLONE ACET 0.1% CREAM 15 GM TUBE TP SCH ×2 (09:53→21:11)
[2023-06-20] MEDS: METHYL SALICYLATE/MENTHOL OINT 30 GM TUBE TP SCH (09:53)
[2023-06-20] MEDS: MIRTAZAPINE 15 MG TABLET (FP) PO SCH (21:11)
[2023-06-20] MEDS: THIAMINE HCL 100 MG TABLET (FP) PO SCH (21:11)
[2023-06-20] MEDS: SUVOREXANT 15 MG TABLET PO PRN (21:12)
[2023-06-20] MEDS: BISACODYL 5 MG TABLET.DR (FP) PO PRN (22:31)
[2023-06-21] MEDS: VITAMINS A AND D TOPICAL OINTMENT 60 GM TUBE TP SCH ×4 (00:20→18:09)
[2023-06-21] MEDS: GABAPENTIN 300 MG CAPSULE PO SCH ×3 (06:22→21:36)
[2023-06-21] MEDS: NICOTINE 10 MG CARTRIDGE (INHALER) IH PRN ×4 (06:22→21:41)
[2023-06-21] MEDS: LISINOPRIL 5 MG TABLET PO SCH (06:22)
[2023-06-21] MEDS: LACTULOSE 20 GM/30 ML UDC (FOR ORAL USE ONLY) PO SCH (09:49)
[2023-06-21] MEDS: METHYL SALICYLATE/MENTHOL OINT 30 GM TUBE TP SCH (09:50)
[2023-06-21] MEDS: TRIAMCINOLONE ACET 0.1% CREAM 15 GM TUBE TP SCH ×2 (09:50→21:57)
[2023-06-21] MEDS: metoPROLOL SUCCINATE 25 MG TAB.SR.24H (FP) PO SCH (09:50)
[2023-06-21] MEDS: SPIRONOLACTONE 25 MG TABLET PO SCH (09:50)
[2023-06-21] MEDS: APIXABAN 5 MG TABLET PO SCH ×2 (09:50→21:36)
[2023-06-21] MEDS: PRENATAL VITAMINS W/ FOLIC ACID TABLET (FP) PO SCH (09:50)
[2023-06-21] MEDS: THIAMINE HCL 100 MG TABLET (FP) PO SCH (21:36)
[2023-06-21] MEDS: MIRTAZAPINE 15 MG TABLET (FP) PO SCH (21:36)
[2023-06-21] MEDS: SUVOREXANT 15 MG TABLET PO PRN (21:38)
[2023-06-21] MEDS: BISACODYL 5 MG TABLET.DR (FP) PO PRN (21:40)
[2023-06-22] MEDS: VITAMINS A AND D TOPICAL OINTMENT 60 GM TUBE TP SCH ×4 (00:23→17:12)
[2023-06-22] MEDS: NICOTINE 10 MG CARTRIDGE (INHALER) IH PRN ×5 (05:56→21:12)
[2023-06-22] MEDS: GABAPENTIN 300 MG CAPSULE PO SCH ×3 (05:57→21:10)
[2023-06-22] MEDS: LISINOPRIL 5 MG TABLET PO SCH (05:57)
[2023-06-22] MEDS: LACTULOSE 20 GM/30 ML UDC (FOR ORAL USE ONLY) PO SCH (09:33)
[2023-06-22] MEDS: APIXABAN 5 MG TABLET PO SCH ×2 (09:33→21:10)
[2023-06-22] MEDS: metoPROLOL SUCCINATE 25 MG TAB.SR.24H (FP) PO SCH (09:33)
[2023-06-22] MEDS: PRENATAL VITAMINS W/ FOLIC ACID TABLET (FP) PO SCH (09:33)
[2023-06-22] MEDS: TRIAMCINOLONE ACET 0.1% CREAM 15 GM TUBE TP SCH ×2 (09:37→21:10)
[2023-06-22] MEDS: METHYL SALICYLATE/MENTHOL OINT 30 GM TUBE TP SCH (09:38)
[2023-06-22] MEDS: SPIRONOLACTONE 25 MG TABLET PO SCH (10:53)
[2023-06-22] MEDS: MIRTAZAPINE 15 MG TABLET (FP) PO SCH (21:10)
[2023-06-22] MEDS: THIAMINE HCL 100 MG TABLET (FP) PO SCH (21:10)
[2023-06-22] MEDS: SUVOREXANT 15 MG TABLET PO PRN (21:11)
[2023-06-22] MEDS: BISACODYL 5 MG TABLET.DR (FP) PO PRN (21:12)
[2023-06-22] MEDS: COLLOIDAL OATMEAL 1 BAR EACH TP PRN (21:33)
[2023-06-22] MEDS ORDERED: SUVOREXANT 15 MG TABLET PO PRN (22:00)
[2023-06-23] MEDS: VITAMINS A AND D TOPICAL OINTMENT 60 GM TUBE TP SCH ×4 (01:04→17:43)
[2023-06-23] MEDS: NICOTINE 10 MG CARTRIDGE (INHALER) IH PRN ×3 (06:26→18:16)
[2023-06-23] MEDS: GABAPENTIN 300 MG CAPSULE PO SCH ×3 (06:26→21:14)
[2023-06-23] MEDS: LISINOPRIL 5 MG TABLET PO SCH (06:26)
[2023-06-23] MEDS: SPIRONOLACTONE 25 MG TABLET PO SCH (10:18)
[2023-06-23] MEDS: APIXABAN 5 MG TABLET PO SCH ×2 (10:18→21:14)
[2023-06-23] MEDS: LACTULOSE 20 GM/30 ML UDC (FOR ORAL USE ONLY) PO SCH (10:18)
[2023-06-23] MEDS: metoPROLOL SUCCINATE 25 MG TAB.SR.24H (FP) PO SCH (10:18)
[2023-06-23] MEDS: TRIAMCINOLONE ACET 0.1% CREAM 15 GM TUBE TP SCH ×2 (10:19→21:15)
[2023-06-23] MEDS: METHYL SALICYLATE/MENTHOL OINT 30 GM TUBE TP SCH (10:20)
[2023-06-23] MEDS: PRENATAL VITAMINS W/ FOLIC ACID TABLET (FP) PO SCH (10:20)
[2023-06-23] MEDS: MIRTAZAPINE 15 MG TABLET (FP) PO SCH (21:14)
[2023-06-23] MEDS: THIAMINE HCL 100 MG TABLET (FP) PO SCH (21:14)
[2023-06-24] MEDS: VITAMINS A AND D TOPICAL OINTMENT 60 GM TUBE TP SCH ×3 (00:45→13:50)
[2023-06-24] MEDS: GABAPENTIN 300 MG CAPSULE PO SCH ×2 (06:05→15:44)
[2023-06-24] MEDS: LISINOPRIL 5 MG TABLET PO SCH (06:05)
[2023-06-24 07:37] VITALS: BP 144/101; PULSE 66; TEMP 97.1
[2023-06-24] MEDS: APIXABAN 5 MG TABLET PO SCH (09:57)
[2023-06-24] MEDS: metoPROLOL SUCCINATE 25 MG TAB.SR.24H (FP) PO SCH (09:57)
[2023-06-24] MEDS: LACTULOSE 20 GM/30 ML UDC (FOR ORAL USE ONLY) PO SCH (09:57)
[2023-06-24] MEDS: PRENATAL VITAMINS W/ FOLIC ACID TABLET (FP) PO SCH (09:57)
[2023-06-24] MEDS: METHYL SALICYLATE/MENTHOL OINT 30 GM TUBE TP SCH (09:57)
[2023-06-24] MEDS: TRIAMCINOLONE ACET 0.1% CREAM 15 GM TUBE TP SCH (10:18)
[2023-06-24] MEDS: SPIRONOLACTONE 25 MG TABLET PO SCH (10:18)
== END 2023-06-24 10:53 | disposition home or self-care (01) | DRG 772 ==
LOC: YASAS 18:43 → Y5N 23:44
PROVIDERS: ADMIT Allergy & Immunology; ATTEND Psychiatry & Neurology Pain Medicine
PROC: HZ42ZZZ Group Counseling for Substance Abuse Treatment, Cognitive-Behavioral (ICD-10-PCS; principal; 2023-06-03)
DX: F10.20 Alcohol dependence, uncomplicated (principal); F17.210 Nicotine dependence, cigarettes, uncomplicated; F19.982 Other psychoactive substance use, unspecified with psychoactive substance-induced sleep disorder; I10 Essential (primary) hypertension; I45.81 Long QT syndrome; I82.432 Acute embolism and thrombosis of left popliteal vein; R94.5 Abnormal results of liver function studies; E87.6 Hypokalemia; E78.5 Hyperlipidemia, unspecified; L30.9 Dermatitis, unspecified; L98.8 Other specified disorders of the skin and subcutaneous tissue; Z56.0 Unemployment, unspecified; Z59.02 Unsheltered homelessness
CPT/HCPCS: 36415; 80053; 84132; 87635